=== PATIENT | female | born 2000 | race Caucasian/White ===

== ENCOUNTER 2022-05-27 17:34 | Emergency (ER) | payer OTHER, BC ==
[2022-05-27] MEDS ORDERED: IBUPROFEN600 MG PO (19:14)
== END 2022-05-27 19:25 | disposition home or self-care (01) ==
LOC: ER1 17:34
DX: S50.811A Abrasion of right forearm, initial encounter (principal); V89.2XXA Person injured in unspecified motor-vehicle accident, traffic, initial encounter; Y92.410 Unspecified street and highway as the place of occurrence of the external cause
CPT/HCPCS: 73090; 99283